=== PATIENT | female | born 1950 | race African-American/Black ===

== ENCOUNTER 2023-08-22 12:17 | Outpatient (REF) | payer OTHER, SELFPAY ==
[2023-08-22 14:52] LABS: Vitamin B12 443 pg/mL (200-900)
== END 2023-08-22 12:18 | disposition home or self-care (01) ==
LOC: HO.LAB 12:17
PROVIDERS: PCP Internal Medicine; Visit Provider Psychiatry & Neurology Neurology
DX: G30.9 Alzheimer's disease, unspecified (principal)
CPT/HCPCS: 36415; 82607